=== PATIENT | female | born 1985 | race Two or more races ===

== ENCOUNTER 2020-10-21 20:07 | Emergency (ER) | payer SELFPAY ==
[~2020-10-21] VITALS: Ht 157.5 cm; Wt 68.1 kg
[2020-10-21 21:07] VITALS: BP 124/92
[2020-10-21] MEDS ORDERED: METF10007 PO (21:11)
[2020-10-21] MEDS ORDERED: SITA50TA PO (21:11)
[2020-10-21] MEDS ORDERED: HYDROcodone/APAP 10/325 1 TAB TABLET PO ONE (22:30)
[2020-10-21] MEDS ORDERED: KETOROLAC 60 MG/2 ML VIAL. IM ONE (22:30)
[2020-10-21] MEDS ORDERED: CYCLOBENZAPRINE 10 MG TABLET. PO ONE (22:30)
--- NOTE | 2020-10-21 22:45 | RAD ---
Pelvis one view, sacrum and coccyx 3 views. HISTORY: Fall with pain Pelvis Single view was taken of the pelvis. An acute pelvic fracture is not identified. There is no hip frac ture noted on the AP film of the pelvis. Sacrum and coccyx 3 views were taken of the sacrum and coccyx. Coccyx appears in normal alignment. Sacrum appears intac t. There is slight widening of the sacral coccygeal joint which could be normal variation or nondispl aced injury at that location. IMPRESSION: 1. Negative pelvis. 2. No acute sacral fracture noted. 3. Coccyx is in normal alignment. Electronically signed by: John Cruz MD (10/21/2020 10:42 PM) [facility]
--- NOTE | 2020-10-21 22:49 | RAD ---
Exam: CT the lumbar spine without contrast INDICATION: Fall, pain TECHNIQUE: Sequential axial images through the lumbar spine obtained without IV contrast. Sagittal an d coronal reformatted images were reconstructed from the axial data and reviewed. Exposure: One or more of the following in the visualized dose reduction techniques were utilized for this examination: 1. Automated exposure control 2. Adjustment of the MA and/or KV according to patient size 3. Use of iterative of reconstructive technique Comparisons: None FINDINGS: Vertebral body heights and alignment are well-maintained. Fracture to the lumbar spine is not identified. No significant spondylotic change lumbar spine. Visualized paraspinal soft tissues are unremarkable. IMPRESSION: Negative CT lumbar spine for acute traumatic injury. Electronically signed by: Priti Meyers MD (10/21/2020 10:46 PM) [facility]
[2020-10-22] MEDS ORDERED: IBUP-1007 PO (00:04)
[2020-10-22] MEDS ORDERED: CYCL10TA2 PO (00:04)
--- NOTE | 2020-10-22 00:05 | PHYS DOC ---
Past Medical History Additional Past Medical Histor: c cection x4 Past Surgical History: Tubal ligation Smoking Status: Current Every Day Smoker Alcohol Use: Occasionally General Adult EDM: Chief Complaint: LOWER BACK PAIN OR INJURY HPI: HPI: Patient is a 35 year old Female presents emergency department complaining of low back and buttocks pain after tripping and falling on her child's toy box last Tuesday morning. Patient reports she originally had buttocks pain but today woke up and noticed her pain is radiated up into her low back area. Patient states she took an ibuprofen yesterday that did not help. Patient denies any numbness to her buttocks or periarea. Patient denies any numbness or tingling down her lower extremities. Patient denies any loss of bowel or bladder, patient denies any urinary retention. Patient reports a 8 out of 10 pain. Patient denies any other physical complaints or physical concerns. Review of Systems: Review of Systems: 14 body systems of review of systems have been reviewed. See HPI for pertinent positives and negative responses, otherwise all other systems are negative, nonpertinent or noncontributory. Constitutional: Negative except as outlined in HPI above. Skin: Negative except as outlined in HPI above. Eyes: Negative except as outlined in HPI above. HENT: Negative except as outlined in HPI above. Respiratory: Negative except as outlined in HPI above. Cardiovascular: Negative except as outlined in HPI above. GI: Negative except as outlined in HPI above. : Negative except as outlined in HPI above. Musculoskeletal: Negative except as outlined in HPI above. Integument: Negative except as outlined in HPI above. Neurologic: Negative except as outlined in HPI above. Endocrine: Negative except as outlined in HPI above. Lymphatic: Negative except as outlined in HPI above. Psychiatric: Negative except as outlined in HPI above. Heart Score: C/O Chest Pain: No Risk Factors: Risk Factors: DM, Current or recent (<one month) smoker, HTN, HLP, family h istory of CAD, obesity. Risk Scores: Score 0 - 3: 2.5% MACE over next 6 weeks - Discharge Home Score 4 - 6: 20.3% MACE over next 6 weeks - Admit for Clinical Observation Score 7 - 10: 72.7% MACE over next 6 weeks - Early Invasive Strategies Current Medications: Current Medications Medications (Trade) Dose Ordered Sig/Zhanna Start Time Stop Time Status Last Admin Dose Admin Acetaminophen/ Hydrocodone Bitart (Lortab 10/325) 1 tab 1X ONCE 10/21/20 22:30 10/21/20 22:31 DC 10/21/20 22:07 1 TAB Cyclobenzaprine HCl (Flexeril) 10 mg 1X ONCE 10/21/20 22:30 10/21/20 22:31 DC 10/21/20 22:07 10 MG Ketorolac Tromethamine (Toradol Im) 60 mg 1X ONCE 10/21/20 22:30 10/21/20 22:31 DC 10/21/20 22:10 60 MG Allergies: Allergies: Allergies Coded Allergies Type Severity Reaction Last Updated Verified No Known Drug Allergies 10/21/20 No Physical Exam: PE: Constitutional: Well developed, well nourished, no acute distress, non-toxic appearance. 35-year-old female in no apparent distress. HENT: Normocephalic, atraumatic. Eyes: Conjunctiva normal, no discharge. Neck: Normal range of motion, no stridor. Cardiovascular: No cyanosis appreciated, distal cap refill less than 2 seconds. Lungs & Thorax: Patient is in no respiratory distress, no audible adventitious lung sounds appreciated. Abdomen: Nontender, no abnormalities noted. Skin: Warm, dry, no erythema, no rash. Back: No deformities appreciated, no midline spinal tenderness appreciated, no right-sided or left-sided CVA tenderness to palpation. Patient does have tenderness to bilateral lumbar area. Bilateral hips and buttocks area. No bruising or skin discoloration appreciated. Extremities: No tenderness, no cyanosis, no clubbing, ROM intact, no edema. 2+ dorsalis pedis/posterior tibial pulses bilaterally, distal cap refill less than 2 seconds bilaterally of lower extremities. No loss of sensation, no swelling, no edema appreciated. Patient ambulating normally, steady gait. Neurologic: Alert and oriented X 3, normal motor function, normal sensory function, no focal deficits noted. Psychologic: Affect normal, judgement normal, mood normal. Current Patient Data: Labs: Laboratory Tests Test 10/21/20 21:35 POC Urine HCG, Qualitative Hcg negative (Negative) Vital Signs: Vital Signs Date Time Temp Pulse Resp B/P (MAP) Pulse Ox O2 Delivery O2 Flow Rate FiO2 10/21/20 22:07 98 Room Air 10/21/20 21:07 98.2 92 18 124/92 98.2 EKG: EKG: [] Radiology/Procedures: Radiology/Procedures: PATIENT: CHRISTOPHE VALEROUNT: [id number] : 1985 LOCATION: ER AGE: 35 SEX: F EXAM STATUS: REG ER ORD. PHYSICIAN: JOEL POST APRN REASON: FALL PAIN PROCEDURE: SACRUM & COCCYX 3V Pelvis one view, sacrum and coccyx 3 views. HISTORY: Fall with pain Pelvis Single view was taken of the pelvis. An acute pelvic fracture is not identified. There is no hip fracture noted on the AP film of the pelvis. Sacrum and coccyx 3 views were taken of the sacrum and coccyx. Coccyx appears in normal alignment. Sacrum appears intact. There is slight widening of the sacral coccygeal joint which could be normal variation or nondisplaced injury at that location. IMPRESSION: 1. Negative pelvis. 2. No acute sacral fracture noted. 3. Coccyx is in normal alignment. Electronically signed by: John Cruz MD (10/21/2020 10:42 PM) [facility] DICTATED and SIGNED BY: JOHN CRUZ MD DATE: 10/21/20 [id number] 0 PATIENT: CHRIS VALEROCOUNT: [id number] : 1985 LOCATION: ER AGE: 35 SEX: F EXAM STATUS: REG ER ORD. PHYSICIAN: JOEL POST APRN REASON: FALL, PAIN PROCEDURE: CT LUMBAR SPINE WO CONTRAST Exam: CT the lumbar spine without contrast INDICATION: Fall, pain TECHNIQUE: Sequential axial images through the lumbar spine obtained without IV contrast. Sagittal and coronal reformatted images were reconstructed from the axial data and reviewed. Exposure: One or more of the following in the visualized dose reduction techniques were utilized for this examination: 1. Automated exposure control 2. Adjustment of the MA and/or KV according to patient size 3. Use of iterative of reconstructive technique Comparisons: None FINDINGS: Vertebral body heights and alignment are well-maintained. Fracture to the lumbar spine is not identified. No significant spondylotic change lumbar spine. Visualized paraspinal soft tissues are unremarkable. IMPRESSION: Negative CT lumbar spine for acute traumatic injury. Electronically signed by: Priti Thomas MD (10/21/2020 10:46 PM) [facility] DICTATED and SIGNED BY: PRITI THOMAS MD DATE: 10/21/20 [id number] 0 Course & Med Decision Making: Course & Med Decision Making Pertinent Labs and Imaging studies reviewed. (See chart for details) 35-year-old female, vital signs reviewed, presents with department complaint of low back and buttocks pain after a slip and fall last Tuesday. Physical examination unremarkable, patient complains of pain level exceeds patient's physical presentation and examination. Will give oral tablet of pain medication and muscle relaxer, order CT L-spine, pelvis, sacrum and coccyx. CT L-spine, x-ray imaging of pelvis sacrum and coccyx unremarkable. Upon reexamination of the patient, patient reports some pain relief. Discussed with patient use of heating pad for comfort related to original injury several days ago. Follow-up with PCP for ongoing pain management. Will prescribe pain medication and muscle relaxer. Discuss with the patient all findings and diagnostic testing as well as the need to follow-up with their primary care provider for further evaluation and treatment or return to the ED if any new or worsening symptoms. Strict return precautions were also discussed at length, the patient voiced understanding and agreement with the discharge planning. The patient was nontoxic in appearance, in no apparent distress, and hemodynamically stable at the time of disposition. Dragon Disclaimer: Dragon Disclaimer: This electronic medical record was generated, in whole or in part, using a voice recognition dictation system. Departure Departure Impression: Primary Impression: Fall Qualified Codes: W19.XXXA - Unspecified fall, initial encounter Additional Impressions: Low back pain Qualified Codes: M54.5 - Low back pain Contusion of buttock Qualified Codes: S30.0XXA - Contusion of lower back and pelvis, initial encounter Disposition: HOME / SELF CARE / HOMELESS Condition: GOOD Referrals: NO PCP (PCP) Patient Instructions: Contusion, Fall Prevention and Home Safety Additional Instructions: You were seen today in the emergency department for a fall. The CT and x-ray imaging did not show any broken bones. You were given a muscle relaxer and a pain medication in the emergency department. I am prescribing you additional muscle relaxer and pain medication, please take as directed. Please follow-up with your doctor soon for ongoing pain management. Thank you for visiting our Emergency Department. It was a pleasure taking care of you today in the emergency department and we appreciate you trusting us with your care. If any additional problems come up don't hesitate to return to visit us. Please follow up with your primary care provider so they can plan additional care if needed and know about the problem that you had. If symptoms worsen come back to the Emergency Department. Any concerning symptoms that start such as chest pain, shortness of air, weakness or numbness on one side of the body, running high fevers or any other concerning symptoms return to the ER. EMERGENCY DEPARTMENT GENERAL DISCHARGE INSTRUCTIONS Thank you for coming to [facility] Emergency Department (ED) today and trusting us with you care. We trust that you had a positive experience in our Emergency Department. If you wish to speak to the department management, you may call the Director at [phone]. YOUR FOLLOW UP INSTRUCTIONS ARE FOLLOWS: 1. Do you have a private Doctor? If you do not have a private doctor, please ask for a resource list of physicians or clinics that may be able to assist you with follow up care. 2. The Emergency Physicain has interpreted your x-rays. The X-Ray specialist will also review them. If there is a change in the findings, you will be notified in 48 hours when at all possible. 3. A lab test or culture has been done, your results will be reviewed and you will be notified if you need a change in treatment. ADDITIONAL INSTRUCTIONS AND INFORMATION: 1. Your care today has been supervised by a physician who is specially trained in emergency care. Many problems require more than one evaluation for a complete diagnosis and treatment. We recommend that you schedule your follow up appointment as recomm ended to ensure complete treatment of you illness or injury. If you are unable to obtain follow up care and continue to have a problem, or if your condition worsens, we recommend that you return to the ED. 2. We are not able to safely determine your condition over the phone nor are we able to give sound medical advice over the phone. For these safety reasons, if you call for medical advice we will ask you to come to the ED for further evaluation. 3. If you have any questions regarding these discharge instructions please call the ED at [phone]. SAFETY INFORMATION: In the interest of safety, wellness, and injury prevention; we encourage you to wear your sealbelt, if you smoke; quite smoking, and we encourage family to use a protective helmet for bicycling and other sporting events that present an increased risk for head injury. IF YOUR SYMPTOMS WORSEN OR NEW SYMPTOMS DEVELOP, OR YOU HAVE CONCERNS ABOUT YOUR CONDITION; OR IF YOUR CONDITION WORSENS WHILE YOU ARE WAITING FOR YOUR FOLLOW UP APPOINTMENT; EITHER CONTACT YOUR PRIMARY CARE DOCTOR, THE PHYSICIAN WHOSE NAME AND NUMBER YOU WERE GIVEN, OR RETURN TO THE ED IMMEDIATELY. Scripts Ibuprofen (IBUPROFEN) 600 Mg Tablet 600 MG PO PRN Q6HRS PRN for INFLAMMATION, #30 TAB 0 Refills Prov: JOEL POST APRN 10/22/20 Cyclobenzaprine Hcl (CYCLOBENZAPRINE HCL) 10 Mg Tablet 10 MG PO TID for muscle spasm, #20 TAB 0 Refills Prov: JOEL POST APRN 10/22/20 JOEL POST APRN Oct 22, 2020 00:04
== END 2020-10-22 00:16 | disposition home or self-care (01) ==
LOC: ER 20:07
DX: S30.0XXA Contusion of lower back and pelvis, initial encounter (principal); F17.200 Nicotine dependence, unspecified, uncomplicated; W01.0XXA Fall on same level from slipping, tripping and stumbling without subsequent striking against object, initial encounter; Y93.89 Activity, other specified; Y92.89 Other specified places as the place of occurrence of the external cause; Y99.8 Other external cause status
CPT/HCPCS: 72131; 72170; 72220; 81025; 96372; 99284; J1885